=== PATIENT | female | born 1950 | race Caucasian/White ===

== ENCOUNTER 2020-01-07 01:32 | Emergency (ER) | payer MEDICARE ==
[2020-01-07] MEDS ORDERED: CLINDAMYCIN 600MG/50ML PREMIX 600 MG/50 ML BAG IVPB ONE (01:46)
--- NOTE | 2020-01-07 01:51 | Emergency Department Record ---
History of Present Illness - General Chief Complaint: Fever Stated Complaint: FEVER Time Seen by Provider: 01/07/20 01:33 Source: Patient Mode of Arrival: Ambulatory Limitations: No limitations - History of Present Illness Initial Comments: 69 yo female presents to ED for evaluation of fever symptoms, body aches, and redness to the right breast following recent surgical procedure for treatment of breast cancer at [facility] 3 weeks ago. Patient reports temperature of 101.2 at home, denies cough, flank pain, abdominal pain, or urinary symptoms on examin ation. Patient denies purulent drainage from her PAXTON drain as well. MD Complaint: Fever Onset/Timin -: Days(s) Temperature Source: Oral Context: Recent procedure Associated Symptoms: Rash Treatments Prior to Arrival: None - Related Data Home Medications Medication Instructions Recorded Confirmed Last Taken Apixaban [Eliquis] 1 tab PO BID 01/07/20 01/07/20 01/07/20 Previous Rx's Medication Instructions Recorded Clindamycin HCl 300 mg PO QID #28 capsule 01/07/20 Allergies Allergy/AdvReac Type Severity Reaction Status Date / Time hydrocodone bitartrate Allergy Unknown NAUSEA Verified 01/07/20 02:38 [From VICODIN] Review of Systems Constitutional: Reports: Fever. Denies: Chills, Malaise, Night sweats Eyes: Denies: Eye discharge, Eye pain ENT: Denies: Congestion, Ear pain, Epistaxis Respiratory: Denies: Cough, Dyspnea Cardiovascular: Denies: Chest pain, Dyspnea on exertion Endocrine: Denies: Fatigue, Heat or cold intolerance Gastrointestinal: Denies: Abdominal pain, Nausea, Vomiting Genitourinary: Denies: Incontinence, Retention Skin: Reports: Change in color, Rash. Denies: Bruising Neurological: Denies: Abnormal gait, Confusion, Headache, Seizure Psychiatric: Denies: Anxiety Hematological/Lymphatic: Denies: Anemia, Blood Clots Past Medical History - SOCIAL HISTORY Smoking Status: Never smoker - RESPIRATORY Hx Respiratory Disorders: No - CARDIOVASCULAR Hx Cardio Disorders: No - NEURO Hx Neuro Disorders: No - GI Hx GI Disorders: No - Hx Genitourinary Disorders: No - ENDOCRINE Hx Diabetes: No (gestational) Hx Thyroid Disease: No - MUSCULOSKELETAL Hx Arthritis: Yes - PSYCH Hx Psych Problems: No - HEMATOLOGY/ONCOLOGY Hx Hematology/Oncology Disorders: No Physical Exam - General General Appearance: Alert, Oriented x3, Cooperative, Mild distress Limitations: No limitations - Head Head exam: Atraumatic, Normocephalic, Normal inspection Head exam detail: negative: Abrasion, Contusion, Potter's sign, General tenderness, Hematoma, Laceration - Eye Eye exam: Normal appearance. negative: Conjunctival injection, Periorbital swelling, Periorbital tenderness, Scleral icterus - ENT Ear exam: negative: Auricular hematoma, Auricular trauma Nasal Exam: negative: Active bleeding, Discharge, Dried blood, Foreign body Mouth exam: negative: Drooling, Laceration, Muffled voice, Tongue elevation - Neck Neck exam: Normal inspection. negative: Meningismus, Tenderness - Respiratory Respiratory exam: Normal lung sounds bilaterally, Other (PAXTON drain is present to the lateral aspect of the right breast, clear drainage is present in the drain. Surrounding erythema is present extending to the infra-mammary region of the right breast.). negative: Rales, Respiratory distress, Rhonchi, Stridor - Cardiovascular Cardiovascular Exam: Regular rate, Normal rhythm, Normal heart sounds - GI/Abdominal GI/Abdominal exam: Soft. negative: Rebound, Rigid, Tenderness - Rectal Rectal exam: Deferred - exam: Deferred - Extremities Extremities exam: Normal inspection. negative: Pedal edema, Tenderness - Back Back exam: Denies: CVA tenderness (R), CVA tenderness (L) - Neurological Neurological exam: Alert, Normal gait, Oriented X3 - Psychiatric Psychiatric exam: Normal affect, Normal mood - Skin Skin exam: Erythema (Right breast). negative: Abrasion Type of lesion: negative: abrasion, Abscess Description of rash: Erythematous, Indurated Course Vital Signs 01/07/20 01:42 Temperature 98.3 F Pulse Rate [ 95 H Left] Respiratory 18 Rate Blood Pressure 128/72 [Left Arm] Pulse Ox 95 - Reevaluation(s) Reevaluation #1: 01/07/20 02:31 Laboratory studies were reviewed and appear grossly unremarkable for an acute process. UA pending. Influenza negative. Clindamycin has completed infusion at this time. Will consult with on-call for Dr. Tamara España (general surgery at [facility]). 01/07/20 02:52 Case was discussed with Dr. Kellie Rice, discussed the patient's results and clinical examination. Dr. Rice is in agreement with continuing Clindamycin as an outpatient with instructions to follow-up in the clinic either later today or tomorrow for evaluation. Patient and her are in agreement with the plan of care as discussed. Reevaluation #2: 01/07/20 03:03 CXR: ? Consolidation vs. atelectasis left base Patient was asked about chest pain, difficulty in breathing, or cough symptoms, denies any of the above symptoms. UA was reviewed: 2+ Bacteria 10-15 WBCs 3-6 RBCs 0 Epithelial cells Patient was updated on all results, will continue treatment with Clindamycin as discussed. Patient appears stable for discharge with follow-up later today. Medical Decision Making - Lab Data Result diagrams: 01/07/20 01:55 01/07/20 01:55 Disposition Disposition: Discharge Clinical Impression: Cellulitis of right breast Disposition: Home, Self-Care Condition: (2) Stable Instructions: Cellulitis (ED) Additional Instructions: Return to ED if your symptoms worsen or if you have any concerns. Clindamycin as directed. Follow-up with your surgeon later today or for further evaluation. Prescriptions: Clindamycin HCl 300 mg PO QID #28 capsule Forms: Patient Portal Access Time of Disposition: 03:07 Quality - Quality Measures Quality Measures: N/A - Blood Pressure Screening Does Patient Have Any of the Following: No Blood Pressure Classification: Pre-Hypertensive BP Reading Systolic Measurement: 128 Diastolic Measurement: 72 Screening for High Blood Pressure: < Pre-Hypertensive BP, F/U Documented > [G8950] Pre-Hypertensive Follow-up Interventions: Referral to alternative/primary care provider.
[2020-01-07] MEDS ORDERED: 0.9 % SODIUM CHLORIDE 1000ML 500 ML IV SCH (02:00)
[2020-01-07 02:06] LABS: ABSOLUTE NEUTROPHIL COUNT 5.14; BASO % 0.1 % (0-6); EOS % 1.1 % (0-6); GRAN % 73.4 % (47-80); HEMATOCRIT 40.1 % (35.0-47.0); HEMOGLOBIN 13.5 gm/dl (11.6-16.0); LYMPH % 15.4 % (16-45); MEAN CELL VOLUME 86.2 fl (81-97); MEAN CORPUSCULAR HGB CONC 33.7 g/dl (32-36); MEAN PLATELET VOLUME 9.3 fl (7.4-10.4); PLATELET COUNT 241 K/uL (130-400); RED BLOOD COUNT 4.65 M/uL (3.80-5.40)
[2020-01-07 02:13] LABS: INFLUENZA A NEGATIVE (NEGATIVE); INFLUENZA B NEGATIVE (NEGATIVE)
[2020-01-07 02:21] LABS: BLOOD UREA NITROGEN 18 mg/dL (8-23); CREATININE 0.9 mg/dL (0.5-0.9); EST GLOMERULAR FILTRATION RATE > 60 mL/min
[2020-01-07 02:22] LABS: TOTAL PROTEIN 7.1 g/dL (6.6-8.7)
[2020-01-07 02:24] LABS: GLUCOSE,RANDOM 108 mg/dL (74-109)
[2020-01-07 02:27] LABS: ALB/GLOB RATIO 0.9 (1.1-1.8); ALBUMIN 3.4 g/dL (4.0-5.0); ALKALINE PHOSPHATASE 54 U/L (35-104); ALT/SGPT 24 U/L (<33); AST/SGOT 25 U/L (10.0-35.0)
[2020-01-07 02:57] LABS: URINE APPEARANCE CLOUDY; URINE BILIRUBIN NEGATIVE (NEGATIVE); URINE BLOOD NEGATIVE (NEGATIVE); URINE COLOR YELLOW; URINE GLUCOSE (UA) NEGATIVE (NEGATIVE); URINE KETONE NEGATIVE (NEGATIVE); URINE LEUKOCYTE ESTERASE MODERATE (NEGATIVE); URINE NITRITE NEGATIVE (NEGATIVE); URINE PROTEIN NEGATIVE (NEGATIVE); URINE UROBILINOGEN 0.2 E.U./dL (0.20 - 1.00)
--- NOTE | 2020-01-07 03:00 | RADIOLOGY REPORT ---
EXAMINATION: Two View Chest Radiographs EXAM DATE: 01/07/2020 2:46 AM TECHNIQUE: Frontal and lateral views INDICATION: Fever, post-op COMPARISON: 12/09/2011 ENCOUNTER: Not applicable FINDINGS: There is mild consolidation adjacent to the left hemidiaphragm, possibly within the lingula. Heart size and vascularity are normal The lungs and pleural spaces are otherwise clear Postoperative changes in the right chest wall IMPRESSION: Minimal left basilar consolidation, either atelectasis or early infiltrate Dictated by: Dakota Harman MD on 01/07/2020 2:57 AM. .
[2020-01-07 03:03] LABS: URINE BACTERIA 2+; URINE EPITHELIAL CELLS 0 - 2 (FEW)
== END 2020-01-07 03:26 | disposition home or self-care (01) ==
LOC: ER 01:32
DX: T81.49XA Infection following a procedure, other surgical site, initial encounter (principal); N61.0 Mastitis without abscess; Y83.8 Other surgical procedures as the cause of abnormal reaction of the patient, or of later complication, without mention of misadventure at the time of the procedure
CPT/HCPCS: 71046; 80053; 81001; 85025; 87400; 96365; 99284; J7030